=== PATIENT | male | born 1935 | race Caucasian/White ===

== ENCOUNTER 2023-05-17 13:06 | Observation (INO) ==
--- NOTE | 2023-05-17 13:15 | ED Triage Note ---
Date of Service May 17, 2023 History of Present Illness This patient was briefly evaluated while in triage. An abbreviated physical exam was performed. This patient is a 87-year-old Male who presents to the ED for evaluation of BLE edema, shortness of breath x 3-4 day ran out of "fluid pill" over the holiday weekend also increased nocturia Physical Exam GENERAL: NAD, mild conversational dyspnea CARDIOVASCULAR: RRR, MELVIN RESPIRATORY: breath sound diminished throughout, mildly tachypnea ABDOMEN: BS x 4. Nontender to palpation. Initial orders for labs and / or imaging were placed and patient was placed in the waiting area until a bed is available. Please see further documentation for the full ED course.
[2023-05-17 13:36] LABS: Basophils # (auto) 0.04 K/uL (0.00-0.20); Basophils % (auto) 0.7 %; Eosinophils # (auto) 0.29 K/uL (0.00-0.50); Eosinophils % (auto) 4.8 %; Hematocrit (blood only) 36.8 % (42.0-52.0); Hemoglobin 12.6 g/dl (14.0-18.0); Immature Granulocytes # (auto) 0.01 K/uL (0.01-0.20); Immature Granulocytes % (auto) 0.2 %; Lymphocytes # (auto) 2.37 K/uL (1.20-3.40); Lymphocytes % (auto) 39.2 %; Mean Corpuscular Hemoglobin 30.8 pg (25.0-34.0); Mean Corpuscular Hgb Conc 34.2 g/dL (32.0-36.0); Mean Platelet Volume 9.8 fL (9.4-12.4); Monocytes # (auto) 0.61 K/uL (0.11-0.59); Monocytes % (auto) 10.1 %; Neutrophils # (auto) 2.72 K/uL (1.40-6.50); Platelet Count 146 K/uL (130-400); RDW Standard Deviation 42.9 fL (36.4-46.3); Red Blood Count 4.09 M/uL (4.70-6.10); White Blood Count 6.04 K/ul (4.8-10.8)
[2023-05-17 13:43] LABS: Appearance Urine Clear (Clear); Bacteria Urine Automated Negative (Negative); Bilirubin Urine Negative (Negative); Blood Urine 1+ (Negative); Cast Urine Automated 0 /lpf (0-5); Color Urine Yellow; Epithelial Cell Urine Auto 0-5 /lpf (0-5); Glucose Urine UA Negative (Negative); Ketones Urine Negative (Negative); Leukocyte Esterase Urine Negative (Negative); Nitrite Urine Negative (Negative); Protein Urine Negative (Negative); RBC Urine Automated 0-4 /hpf (0-4); Specific Gravity Urine 1.008 (1.000-1.030); Urobilinogen Urine Negative (Negative); WBC Urine Automated 0 /hpf (0-5)
[2023-05-17 13:52] LABS: Alanine Aminotransferase 14 U/L (7-52); Albumin Globulin Ratio 1.5 (0.9-2); Albumin Level 3.8 gm/dl (3.4-5.0); Alkaline Phosphatase 37 U/L (34-104); Anion Gap 8 (3-11); Aspartate Aminotransferase 19 U/L (13-39); BUN Creatinine Ratio 12.2 (10-20); Bilirubin,Total 0.5 mg/dl (0.2-1.0); Blood Urea Nitrogen 28 mg/dl (6-23); Calcium 9.9 mg/dl (8.6-10.3); Carbon Dioxide 28 mmol/L (21-32); Chloride 104 mmol/L (98-107); Est GFR (African American) 28.5 ml/min; Est GFR (Non-African American) 24.6 ml/min; Globulin 2.5 gm/dl (2.5-4.0); Glucose 92 mg/dl (70-99(Fasting)); Potassium 4.1 mmol/L (3.5-5.1); Sodium 140 mmol/L (136-145); Total Protein 6.3 gm/dl (6.0-8.3)
[2023-05-17 13:58] LABS: Troponin I High Sensitivity 20.5 pg/ml (0-20)
--- NOTE | 2023-05-17 14:00 | XRay Report ---
XR chest 1V portable CLINICAL HISTORY: sob, fluid overload? TECHNIQUE: Single frontal radiograph of the chest was obtained. Comparison: None available at the time of this dictation. FINDINGS: No lines and tubes are seen. Calcified aortic knob is seen. The lungs are clear. No evidence of pleur al effusion or pneumothorax. IMPRESSION: No acute abnormalities and in particular no radiographic evidence of pneumonia. ACT 112: Negative or not required by law. Electronically signed by: Carlton Schmitt M.D. 05/17/2023 1:59 PM
--- NOTE | 2023-05-17 14:23 | Emergency Department Note ---
Impression & Plan Acute kidney injury superimposed on chronic kidney disease, Acute decompensated heart failure ED Provider Note NAME: LACIE CAMACHO AGE: 87 SEX: M : 1935 ARRIVES VIA: Walk-In INFORMANT: Patient, ED PROVIDER(S): Bal Babin MD CHIEF COMPLAINT: HPI: This is an 87-year-old male presented for bilateral lower extremity swelling. Patient states that he has had BLE for multiple weeks to months. He is on Bumex. He states that over the past 2 days he has noticed worsening bilateral lower edema despite taking his fluid pill. He notes he is now having difficulty with exertional dyspnea. He is noticing orthopnea where he must sit up in bed in order to sleep. He lives alone and his daughter is worried about him doing each activities due to his unsteadiness as well as dyspnea. Patient also was seen at urology at outside hospital in which he had burning with urination. He was diagnosed with cystitis on CT and started on ciprofloxacin for 1 month. ROS: See above HPI for pertinent positives & negatives. A total of 10 systems reviewed and were otherwise negative. PAST MEDICAL HISTORY: See Below PAST SURGICAL HISTORY: See Below FAMILY HISTORY: See Below SOCIAL HISTORY: See Below HOME MEDICATIONS: See Below ALLERGIES: See Below VITALS: See Below PHYSICAL EXAMINATION: General: resting comfortably in no acute distress Head: Normocephalic and atraumatic Eyes: Normal inspection, extraocular muscles intact Ear, nose, throat: Normal external exam Neck: Normal range of motion Respiratory: Left lower diminished Cardiovascular: Regular rate/rhythm, no murmur GI: soft, nontender, no guarding or rebound Extremities: nontender, moves all extremities, 3+ pitting edema Neuro: The patient awake and alert, appropriately conversive, no focal deficits, symmetric faces Skin: Warm, dry, and intact MEDICAL DECISION MAKING: This is a an 87-year-old male plan for bilateral lower extremity edema, dyspnea. Patient has subtle left lower lung sounds concerning for fluid. Otherwise patient is orthopneic, having dyspnea even conversing with me. He is about to finish a full sentence. External records reviewed from that has [place] showing CT abdomen/pelvis showing possible cystitis. Also reviewed note from patient's urology ALEXANDER who did the initial scan as well as ciprofloxacin for cystitis/prostatitis. Will get screening blood work here, BNP, chest x-ray. Chest Xray independently interpreted by me showing no pneumothorax, focal opacity, or pleural effusions. Patient's lab work is reviewed showing a subtle BMV elevation, creatinine 2.9, troponin elevation into the 20s. Due to patient's symptoms, kidney function, troponin elevation, will admit for further workup and treatment. Patient accepted to [facility] service. Triage Nursing notes reviewed. Prior medical records reviewed Vital Signs: reviewed and remarkable for no significant abnormalities Differential diagnosis: CHF, ACS, renal failure, fluid overload Records reviewed ER treatment provided: See below Diagnostics interpreted by me: ECG: ECG independently interpreted by me with normal sinus rhythm, rate of 85, normal axis, normal WI, normal QRS, normal QTc, no ST segment elevations consistent with STEMI criteria Cardiac Monitoring: An order was placed for continuous cardiac monitoring. The monitor shows a rate of 68 with sinus rhythm. Laboratory studies: As stated above and show below. Imaging studies: See below. Radiographic imaging was reviewed by myself Consultation(s): None Past Med/Surg History Medical History (Updated 05/17/23 @ 19:25 by Bal Babin MD) Aortic valve sclerosis Bradycardia HTN (hypertension) CAD (coronary artery disease) Dyslipidemia BPH (benign prostatic hyperplasia) CKD (chronic kidney disease), stage III Chronic diastolic heart failure Surgical History (Updated 05/17/23 @ 17:30 by Audra Bangura PA-C) H/O hernia repair Hx of tonsillectomy S/P cholecystectomy Family History (Updated 05/17/23 @ 17:30 by Audra Bangura PA-C) Other Heart disease Hypertension Social History Smoking Status: Unknown if ever smoked Feels Safe at Home: Yes Allergies Allergies Allergy/AdvReac Type Severity Reaction Status Date / Time acetaminophen Allergy Unknown RASH Verified 05/17/23 15:47 cimetidine Allergy Unknown RASH Verified 05/17/23 15:47 cyclobenzaprine Allergy Unknown RASH Verified 05/17/23 15:47 hydrocodone Allergy Unknown RASH Verified 05/17/23 15:47 oxycodone Allergy Unknown RASH Verified 05/17/23 15:47 lisinopril AdvReac Unknown CHEST PAIN Verified 05/17/23 15:47 Home Meds Home Medications Medication Instructions Recorded Confirmed Prostate-8 1 tab PO DIRECTED 05/17/23 05/17/23 aspirin 81 mg tablet,delayed 81 mg PO DAILY 05/17/23 05/17/23 release bumetanide 1 mg tablet 1 mg PO QAM 05/17/23 05/17/23 coenzyme Q10 100 mg capsule 200 mg PO DAILY 05/17/23 05/17/23 (CoQ-10) doxazosin 8 mg tablet 8 mg PO QPM 05/17/23 05/17/23 famotidine 20 mg tablet (Pepcid) 20 mg PO DAILY PRN Acid Reflux 05/17/23 05/17/23 hydrocortisone acetate 25 mg 25 mg WI BID PRN Hemorrhoids 05/17/23 05/17/23 rectal suppository (Anusol-HC) isosorbide mononitrate 30 mg 30 mg PO QAM 05/17/23 05/17/23 tablet,extended release 24 hr lactobacillus combination no.4 3 0 mmu cells PO DAILY 05/17/23 05/17/23 billion cell capsule (Probiotic) lecithin 1,200 mg capsule 1,200 mg PO DAILY 05/17/23 05/17/23 losartan 100 mg tablet 100 mg PO DAILY 05/17/23 05/17/23 magnesium carbonate 250 mg capsule 250 mg PO DAILY 05/17/23 05/17/23 metoprolol succinate 25 mg 25 mg PO QAM 05/17/23 05/17/23 tablet,extended release 24 hr gvhwccstlqzk-kbpufiwm-ivgyez tablet 1 tab PO DAILY 05/17/23 05/17/23 triamcinolone acetonide 0.1 % 1 applic topical BID PRN flare ups 05/17/23 05/17/23 topical cream Results & Data (ED) Vital Signs Vital Signs - 24 hr 05/17/23 13:10 05/17/23 14:09 05/17/23 14:09 Temperature 36.6 C Temperature Source Temporal Artery Scan Pulse Rate 97 H Pulse Rate [Apical] 65 Pulse Rate from SpO2 Sensor Respiratory Rate 20 17 Respiratory Effort / Characteristics Non-Labored Respiratory Depth Normal Blood Pressure 126/72 Blood Pressure [Left Arm] 153/73 H Blood Pressure Mean 90 Blood Pressure Mean [Left Arm] 99 Pulse Oximetry 97 98 Oxygen Delivery Method Room Air Room Air Room Air Sepsis Recent Fever Within 48 Hours No Sepsis New/Unexplained Change in Mental Status No Sepsis Action Taken by Nursing No Action Required 05/17/23 14:09 05/17/23 14:30 05/17/23 14:30 Temperature Temperature Source Pulse Rate 63 Pulse Rate [Apical] Pulse Rate from SpO2 Sensor 64 Respiratory Rate 19 Respiratory Effort / Characteristics Respiratory Depth Blood Pressure 141/78 H Blood Pressure [Left Arm] Blood Pressure Mean 110 Blood Pressure Mean [Left Arm] Pulse Oximetry 97 Oxygen Delivery Method Room Air Room Air Sepsis Recent Fever Within 48 Hours Sepsis New/Unexplained Change in Mental Status Sepsis Action Taken by Nursing 05/17/23 15:00 05/17/23 15:00 05/17/23 15:30 Temperature Temperature Source Pulse Rate 65 Pulse Rate [Apical] Pulse Rate from SpO2 Sensor 63 Respiratory Rate 24 Respiratory Effort / Characteristics Respiratory Depth Blood Pressure 139/84 140/82 Blood Pressure [Left Arm] Blood Pressure Mean 106 98 Blood Pressure Mean [Left Arm] Pulse Oximetry 97 Oxygen Delivery Method Room Air Sepsis Recent Fever Within 48 Hours Sepsis New/Unexplained Change in Mental Status Sepsis Action Taken by Nursing 05/17/23 15:30 05/17/23 15:34 05/17/23 16:01 Temperature Temperature Source Pulse Rate 65 63 73 Pulse Rate [Apical] Pulse Rate from SpO2 Sensor 65 75 Respiratory Rate 15 22 Respiratory Effort / Characteristics Respiratory Depth Blood Pressure Blood Pressure [Left Arm] Blood Pressure Mean Blood Pressure Mean [Left Arm] Pulse Oximetry 97 97 Oxygen Delivery Method Room Air Room Air Sepsis Recent Fever Within 48 Hours Sepsis New/Unexplained Change in Mental Status Sepsis Action Taken by Nursing 05/17/23 16:01 Temperature Temperature Source Pulse Rate Pulse Rate [Apical] Pulse Rate from SpO2 Sensor Respiratory Rate Respiratory Effort / Characteristics Respiratory Depth Blood Pressure 121/85 Blood Pressure [Left Arm] Blood Pressure Mean 95 Blood Pressure Mean [Left Arm] Pulse Oximetry Oxygen Delivery Method Sepsis Recent Fever Within 48 Hours Sepsis New/Unexplained Change in Mental Status Sepsis Action Taken by Nursing Laboratory Data 05/17/23 12:22 05/17/23 12:22 Lab Results 05/17/23 05/17/23 05/17/23 Range/Units 12:22 13:32 15:11 WBC 6.04 (4.8-10.8) K/ul RBC 4.09 L (4.70-6.10) M/uL Hgb 12.6 L (14.0-18.0) g/dl Hct 36.8 L (42.0-52.0) % MCV 90.0 (80.0-100.0) fL MCH 30.8 (25.0-34.0) pg MCHC 34.2 (32.0-36.0) g/dL RDW Std Deviation 42.9 (36.4-46.3) fL RDW Coeff of Reji 13.0 (11.5-14.5) % Plt Count 146 (130-400) K/uL MPV 9.8 (9.4-12.4) fL Immature Gran % (Auto) 0.2 % Neut % (Auto) 45.0 % Lymph % (Auto) 39.2 % [place] % (Auto) 10.1 % Eos % (Auto) 4.8 % Baso % (Auto) 0.7 % Neut # (Auto) 2.72 (1.40-6.50) K/uL Lymph # (Auto) 2.37 (1.20-3.40) K/uL [place] # (Auto) 0.61 H (0.11-0.59) K/uL Eos # (Auto) 0.29 (0.00-0.50) K/uL Baso # (Auto) 0.04 (0.00-0.20) K/uL Immature Gran # (Auto) 0.01 (0.01-0.20) K/uL Sodium 140 (136-145) mmol/L Potassium 4.1 (3.5-5.1) mmol/L Chloride 104 (98-107) mmol/L Carbon Dioxide 28 (21-32) mmol/L Anion Gap 8 (3-11) BUN 28 H (6-23) mg/dl Creatinine 2.29 H (0.6-1.4) mg/dl Est Cr Clr Drug Dosing Not Reportable Est GFR ( Amer) 28.5 ml/min Est GFR (Non-Af Amer) 24.6 ml/min BUN/Creatinine Ratio 12.2 (10-20) Glucose 92 (70-99(Fasting)) mg/dl Calcium 9.9 (8.6-10.3) mg/dl Total Bilirubin 0.5 (0.2-1.0) mg/dl AST 19 (13-39) U/L ALT 14 (7-52) U/L Alkaline Phosphatase 37 (34-104) U/L Troponin I High Sens 20.5 H 47.5 H D (0-20) pg/ml B-Natriuretic Peptide 157 H (0-100) pg/ml Total Protein 6.3 (6.0-8.3) gm/dl Albumin 3.8 (3.4-5.0) gm/dl Globulin 2.5 (2.5-4.0) gm/dl Albumin/Globulin Ratio 1.5 (0.9-2) Urine Color Yellow Urine Appearance Clear (Clear) Urine pH 5.0 (4.5-7.5) Ur Specific [place] 1.008 (1.000-1.030) Urine Protein Negative (Negative) Urine Glucose (UA) Negative (Negative) Urine Ketones Negative (Negative) Urine Blood 1+ H (Negative) Urine Nitrite Negative (Negative) Urine Bilirubin Negative (Negative) Urine Urobilinogen Negative (Negative) Ur Leukocyte Esterase Negative (Negative) Urine WBC (Auto) 0 (0-5) /hpf Urine RBC (Auto) 0-4 (0-4) /hpf U Hyaline Cast (Auto) 0 (0-5) /lpf U Epithel Cells (Auto) 0-5 (0-5) /lpf Urine Bacteria (Auto) Negative (Negative) Administered Medications Furosemide (Furosemide 40 Mg/4 Ml Vial) 40 mg IV DAILY YURI Stop: 06/16/23 17:14 Last Admin: 05/17/23 17:42 Dose: 40 mg Documented By: KIRSTEN Imaging Data Radiologist's Impression: Chest X-Ray 05/17/23 13:43 XR chest 1V portable CLINICAL HISTORY: sob, fluid overload? TECHNIQUE: Single frontal radiograph of the chest was obtained. Comparison: None available at the time of this dictation. FINDINGS: No lines and tubes are seen. Calcified aortic knob is seen. The lungs are clear. No evidence of pleural effusion or pneumothorax. IMPRESSION: No acute abnormalities and in particular no radiographic evidence of pneumonia. ACT 112: Negative or not required by law. Electronically signed by: Carlton Schmitt M.D. 05/17/2023 1:59 PM Discharge Plan Visit Data Chief Complaint: Shortness of Breath/Dyspnea Stated Complaint: SOB ED Provider: Bal Babin Discharge Problem: Acute kidney injury superimposed on chronic kidney disease, Acute decompensated heart failure Discharge Instructions Interventions: ED Discharge Assessment Last Done: 05/17/23 18:44
--- NOTE | 2023-05-17 15:58 | History & Physical Report ---
Date of Service May 17, 2023 Assessment & Plan (1) Acute decompensated heart failure: (2) Acute kidney injury superimposed on chronic kidney disease: (3) HTN (hypertension): (4) CAD (coronary artery disease): (5) Dyslipidemia: (6) BPH (benign prostatic hyperplasia): (7) Bradycardia: Plan This is an 87-year-old male with PMH of CAD, hypertension, venous insufficiency, CKD 3, chronic diastolic heart failure, CKD 3, BPH, lower extremity edema, anemia of chronic disease and other medical problems listed below who presents from home with worsening dyspnea on exertion and found to have decompensated HF. Acute decompensated HFpEF Weight gain, orthopnea worsening since Appears clinically volume overloaded, BNP 157, trop 20.5 -> 47.5 Given 40mg IV Lasix in ED, monitor diuresis overnight Previous 2D echo from Apr 2021 with preserved EF 60-64%, grade 1 diastolic dysfunction, aortic valve sclerosis, mild MR Low Na diet, daily weights, strict I&Os, continue trending troponin, repeat EKG in AM, routine cardiology consult MAGDALENA on CKD III Cr 2.29 (baseline ~2) Continue to monitor with diuresis Hold losartan in AM HTN Continue Toprol, holding AM dose of losartan given MAGDALENA as above CAD History of medically managed CAD with remote history of cardiac catheterization 1995 with an 80% RCA stenosis and a 40-60% LCx stenosis No chest pain, admission EKG with sinus rhythm with sinus arrhythmias, non- specific ST abnormality Continue aspirin, statin, Toprol BPH Cont. doxazosin Chronic dysuria awaiting outpatient urology appt. UA today without abnormality DVT Ppx: SQ heparin Code status: FULL PCP: [place] Dispo: Admitted to PCU, PT/OT eval ordered prior to dc as patient lives alone, ambulates with walker Patient seen in collaboration with Dr. Beebe. Please see addendum. History of Present Illness Chief Complaint: dyspnea on exertion Primary Care Provider: Olivia Griggs MD This is an 87-year-old male with PMH of CAD, hypertension, venous insufficiency, CKD 3, chronic diastolic heart failure, CKD 3, BPH, lower extremity edema, anemia of chronic disease and other medical problems listed below who presents from home with worsening dyspnea on exertion. Patient lives alone and ambulates with a walker. Patient is a poor historian and states that the reason he came in is for dysuria but upon further questions and discussion with family, patient was brought in for worsening dyspnea on exertion. History of chronic diastolic heart failure and is on 1 mg Bumex daily, which she states he has been taking. Patient endorses progressively worsening shortness of breath over the past week and is now short of breath even with speaking. Usually sleeps with head of bed raised but had to raise even higher last night to breathe more easily. Denies any recent viral illness or known sick contacts. No fever, chills or nasal congestion. Feels his legs are chronically swollen but seem to be even more so over the past few days since . Admits to eating a lot of salty foods over the holiday and generally eats prepackaged dinners from [employer]. Denies any PND, cough or chest pain. No N/V, abdominal pain, diarrhea or constipation. Chronic issue with dysuria but outpatient and current UA negative. Dr. Griggs has referral in for urology eval given blood in urine and ongoing dysuria. Follows with [facility] cardiology Dr. Pickard and PRIETO Sanchez, most recently seen in Jan 2023. Documented to have significant lower extremity edema secondary to dietary indiscretion in the past from mainly eating pre-packaged dinners. History of medically managed CAD with remote history of cardiac catheterization 1995 with an 80% RCA stenosis and a 40-60% LCx stenosis. Most recent 2D echo from Apr 2021 with preserved EF 60-64%, grade 1 diastolic dysfunction, aortic valve sclerosis, mild MR. History of CKD with baseline Cr 2.0, has not followed with nephrology in the past. Per chart review, patient up 4.4 lbs since previous weight in [facility]. Allergies Allergy/AdvReac Type Severity Reaction Status Date / Time acetaminophen Allergy Unknown RASH Verified 05/17/23 15:47 cimetidine Allergy Unknown RASH Verified 05/17/23 15:47 cyclobenzaprine Allergy Unknown RASH Verified 05/17/23 15:47 hydrocodone Allergy Unknown RASH Verified 05/17/23 15:47 oxycodone Allergy Unknown RASH Verified 05/17/23 15:47 lisinopril AdvReac Unknown CHEST PAIN Verified 05/17/23 15:47 Home Medications Medication Instructions Recorded Confirmed Type Prostate-8 1 tab PO DIRECTED 05/17/23 05/17/23 History aspirin 81 mg tablet,delayed 81 mg PO DAILY 05/17/23 05/17/23 History release bumetanide 1 mg tablet 1 mg PO QAM 05/17/23 05/17/23 History coenzyme Q10 100 mg capsule 200 mg PO DAILY 05/17/23 05/17/23 History (CoQ-10) doxazosin 8 mg tablet 8 mg PO QPM 05/17/23 05/17/23 History famotidine 20 mg tablet (Pepcid) 20 mg PO DAILY PRN Acid Reflux 05/17/23 05/17/23 History hydrocortisone acetate 25 mg 25 mg AL BID PRN Hemorrhoids 05/17/23 05/17/23 History rectal suppository (Anusol-HC) isosorbide mononitrate 30 mg 30 mg PO QAM 05/17/23 05/17/23 History tablet,extended release 24 hr lactobacillus combination no.4 3 0 mmu cells PO DAILY 05/17/23 05/17/23 History billion cell capsule (Probiotic) lecithin 1,200 mg capsule 1,200 mg PO DAILY 05/17/23 05/17/23 History losartan 100 mg tablet 100 mg PO DAILY 05/17/23 05/17/23 History magnesium carbonate 250 mg capsule 250 mg PO DAILY 05/17/23 05/17/23 History metoprolol succinate 25 mg 25 mg PO QAM 05/17/23 05/17/23 History tablet,extended release 24 hr bwejaowgvglf-prqcfgvp-nifphw tablet 1 tab PO DAILY 05/17/23 05/17/23 History triamcinolone acetonide 0.1 % 1 applic topical BID PRN flare ups 05/17/23 05/17/23 History topical cream Past Med/Surg History Medical History (Updated 05/17/23 @ 17:36 by Audra Bangura PA-C) Aortic valve sclerosis Bradycardia HTN (hypertension) CAD (coronary artery disease) Dyslipidemia BPH (benign prostatic hyperplasia) CKD (chronic kidney disease), stage III Chronic diastolic heart failure Surgical History (Updated 05/17/23 @ 17:30 by Audra Bangura PA-C) H/O hernia repair Hx of tonsillectomy S/P cholecystectomy Family History (Updated 05/17/23 @ 17:30 by Audra Bangura PA-C) Other Heart disease Hypertension Social History Smoking Status: Unknown if ever smoked Feels Safe at Home: Yes Review of Systems Review of Systems: At least ten systems reviewed and negative except as noted in the HPI. Physical Exam Physical Exam: General Appearance: WD/WN, vitals as above, NAD, sitting up in bed, pleasant, conversational dyspnea Head: normocephalic, atraumatic Eyes: normal inspection, PERRL, conjunctivae normal, anicteric sclerae ENT: external ear and nose normal, oropharynx normal Neck: normal visual inspection, trachea midline, no thyromegaly Respiratory: increased respiratory effort, diminished breath sounds to auscultation, no wheeze or rhonchi. + accessory muscle use Cardiovascular: bradycardic rate, regular rhythm, +MELVIN, normal peripheral pulses, 2-3+ BLE edema Chest: normal inspection of chest Abdomen/GI: normal bowel sounds, soft, nontender, no hepatosplenomegaly Extremities/Musculoskeletal: no cyanosis or clubbing, extremities motor strength 5/5 Neurologic: PERRL, EOMI, accommodation nl, no face palsy, no dysarthria, CN's II-XI intact bilaterally and moves all extremities Psychiatric: A+Ox3, euthymic affect Skin: no rashes, normal color, warm/dry Results & Data Results & Data Vital Signs (Past 12 Hours) Vital Signs Temp Pulse Pulse Resp BP BP Pulse Ox 05/17/23 15:34 63 05/17/23 14:30 141/78 H 05/17/23 14:30 63 19 97 05/17/23 14:09 05/17/23 14:09 65 17 153/73 H 98 05/17/23 14:09 05/17/23 13:10 36.6 C 97 H 20 126/72 97 O2 Del Method 05/17/23 15:34 05/17/23 14:30 05/17/23 14:30 Room Air 05/17/23 14:09 Room Air 05/17/23 14:09 Room Air 05/17/23 14:09 Room Air 05/17/23 13:10 Room Air Laboratory Results Short CBC 05/17/23 Range/Units 12:22 WBC 6.04 (4.8-10.8) K/ul Hgb 12.6 L (14.0-18.0) g/dl Hct 36.8 L (42.0-52.0) % Plt Count 146 (130-400) K/uL BMP 05/17/23 12:22 Sodium 140 Potassium 4.1 Chloride 104 Carbon Dioxide 28 BUN 28 H Creatinine 2.29 H Glucose 92 Calcium 9.9 Liver Function 05/17/23 Range/Units 12:22 Total Bilirubin 0.5 (0.2-1.0) mg/dl AST 19 (13-39) U/L ALT 14 (7-52) U/L Alkaline Phosphatase 37 (34-104) U/L Albumin 3.8 (3.4-5.0) gm/dl Urine 05/17/23 Range/Units 13:32 Urine Color Yellow Urine Appearance Clear (Clear) Urine pH 5.0 (4.5-7.5) Ur Specific [place] 1.008 (1.000-1.030) Urine Protein Negative (Negative) Urine Glucose (UA) Negative (Negative) Diagnostic Findings Chest X-Ray 05/17/23 13:43 XR chest 1V portable CLINICAL HISTORY: sob, fluid overload? TECHNIQUE: Single frontal radiograph of the chest was obtained. Comparison: None available at the time of this dictation. FINDINGS: No lines and tubes are seen. Calcified aortic knob is seen. The lungs are clear. No evidence of pleural effusion or pneumothorax. IMPRESSION: No acute abnormalities and in particular no radiographic evidence of pneumonia. ACT 112: Negative or not required by law. Electronically signed by: Carlton Schmitt M.D. 05/17/2023 1:59 PM Supervising Physician Co-Signing Physician Notes Pt seen and examined by myself, Zari Beebe MD on the day of service. Care was coordinated with Audra Bangura PA-C. 87yoM with PMhx significant for chronic diastolic heart failure, follows with [facility]. Pt tangential on exam, notes that he came in due to difficulty with urination, but reportedly has been having worsening FRANKLIN. On exam, noted significant lower extremity edema, breath sounds decreased bilaterally. BNP elevated at 156, chest xray unremarkable. Elevation to Cr of 2.29, baseline of 1.9 noted in [facility] from January [address]23. CT chest ordered, IV Lasix 40mg now, hold home bumex. Consider daily-BID administration of IV Lasix with close kidney function monitoring. Echo pending, last echo from 2020 in [facility] reviewed. Cardiology consult- appreciate recs. Otherwise as above.
[2023-05-17 17:02] LABS: Influenza A virus by PCR Negative (Neg); Influenza B virus by PCR Negative (Neg); RSV by PCR Negative (Neg); SARS CoV2 RNA(COVID-19) Ceph NEGATIVE (Negative)
[2023-05-17] MEDS: FUROSEMIDE 40 MG/4 ML VIAL IV SCH (17:42)
[2023-05-17] MEDS ORDERED: POLYETHYLENE (MIRALAX) 17 GM PACK PO PRN (19:18)
[2023-05-17] MEDS ORDERED: FAMOTIDINE 20 MG TAB PO PRN (19:18)
[2023-05-17] MEDS ORDERED: ONDANSETRON INJ 2 MG/ML 2 ML VIAL IV PRN (19:18)
[2023-05-17] MEDS ORDERED: hydrALAZINE HCL 20 MG/ML VIAL IV PRN (19:32)
[2023-05-17] MEDS: DOXAZosin MESYLATE 4 MG TAB PO SCH (20:24)
[2023-05-17] MEDS: HEPARIN SOD 5,000 UNIT/0.5 ML VIAL SQ SCH (21:01)
--- NOTE | 2023-05-17 21:14 | CT Scan Report ---
Exam(s): CT CHEST Without Contrast EXAM: CT Chest Without Intravenous Contrast CLINICAL HISTORY: Reason for exam: FRANKLIN. TECHNIQUE: Axial computed tomography images of the chest without intravenous contrast. CTDI is 11 mGy and DLP is 333.21 mGy-cm. Automated exposure control was utilized for the study. A dose lowering technique was utilized adhering to the principles of ALARA. COMPARISON: No relevant prior studies available. FINDINGS: Lungs: Unremarkable. No mass. No consolidation. Pleural space: Unremarkable. No pneumothorax. No significant effusion. Heart: Mild to moderate coronary vascular calcifications are seen. No cardiomegaly. No significant pericardial effusion. Bones/joints: Mild to moderate degenerative disc disease. No acute fracture. No dislocation. Soft tissues: Unremarkable. Vasculature: Ascending aorta is ectatic, measuring up to 3.8 cm in diameter. Lymph nodes: Unremarkable. No enlarged lymph nodes. IMPRESSION: No evidence of pulmonary edema or consolidation Electronically signed by: Daryn Gayle MD 05/17/23 21:13 PM
[2023-05-18 02:36] LABS: Hematocrit (blood only) 34.4 % (42.0-52.0); Hemoglobin 11.8 g/dl (14.0-18.0); Mean Corpuscular Hemoglobin 31.1 pg (25.0-34.0); Mean Corpuscular Hgb Conc 34.3 g/dL (32.0-36.0); Mean Corpuscular Volume 90.8 fL (80.0-100.0); Mean Platelet Volume 9.8 fL (9.4-12.4); Platelet Count 129 K/uL (130-400); RDW Standard Deviation 43.3 fL (36.4-46.3); Red Blood Count 3.79 M/uL (4.70-6.10); White Blood Count 5.87 K/ul (4.8-10.8)
[2023-05-18 02:51] LABS: Calcium 9.2 mg/dl (8.6-10.3); Creatinine Clr Calc Pharmacy 19.3 ml/min; Est GFR (African American) 26.1 ml/min; Est GFR (Non-African American) 22.5 ml/min; Magnesium 2.1 mg/dl (1.7-2.4); Potassium 4.1 mmol/L (3.5-5.1)
[2023-05-18] MEDS: HEPARIN SOD 5,000 UNIT/0.5 ML VIAL SQ SCH ×3 (05:35→21:28)
--- NOTE | 2023-05-18 08:44 | Cardiology Consultation ---
Date of Consultation May 18, 2023 Assessment & Plan (1) Acute on chronic diastolic CHF (congestive heart failure): (2) Acute kidney injury superimposed on chronic kidney disease: Plan IMPRESSION: 87 year old male with acute on chronic HFpEF likely secondary to dietary indiscretion with high sodium foods. HS troponin elevated. EKG without acute ST segment changes. Echo pending. BP Hypertensive. Losartan on hold due to renal disease. PLAN: HFpEF: Patient appears hypervolemic on exam. Continue IV Lasix 40 mg daily-- consider nephrology consult. Repeat BMP in the am. Monitor potassium for a goal of 4.0 and a mag goal of 2.0-- replete as needed. 2g sodium diet. Strict I&O. Daily standing weights. CHF Edu. Echo pending-- further recommendations to follow. CAD: Remote history of cardiac cath circa 1995, 80% RCA stenosis and 40 to 60% left circumflex stenosis. Patient with symptoms of atypical CP and FRANKLIN- HS tropinin elevated. EKG without acute ST segment changes. Given renal dysfunction will treat conservatively-- Increase Imdur to 60 mg daily. Will give an additional 30 mg this am Holding Losartan due to renal dysfunction Continue metoprolol succinate 25 mg daily Continue Pepcid for possible reflux symptoms. Continue ASA and Statin. Case discussed with Dr. Hughes. I spent a total of 40 minutes on the date of service in preparation, delivery, and documentation of the care provided to this patient, excluding any time spent in the performance of separately billed services. Supervising Physician Co-Signing Physician Notes Patient seen and examined at the bedside. Somewhat of a poor historian. Notes transient chest discomfort yesterday which he felt was attributed to GERD. Currently pain-free. Reports weight gain and worsening lower extremity edema over the holidays. Blood pressure initially elevated however improved after diuresis. Fluid balance negative approximately 1400 cc after 2 doses IV furosemide. PE: VSS. Gen: NAD, awake and alert. Heart: Regular rhythm, normal S1-S2. 1/6 systolic ejection murmur. Lungs: Clear bilateral, no rales, rhonchi, wheeze. Abdomen: Soft, nontender, no rebound or guarding. Extremities: 2+ bilateral pedal and pretibial edema. 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 Echocardiogram demonstrating preserved LV systolic function with elevated pulmonary pressures. Continue daily cautious IV diuresis with furosemide. Follow GFR, electrolytes, daily weight, and fluid balance. Resume losartan in a.m. pending review of labs. Agree with increasing Imdur to 60 mg daily. Continue low-dose aspirin and metoprolol as ordered. I spent a total of 30 minutes on the date of service in preparation, delivery, and documentation of the care provided to this patient, excluding any time spent in the performance of separately billed services. History of Present Illness Reason for Consultation: Acute on chronic diastolic CHF Requesting Physician: Yesenia dos santos Attending Physician: Michael Becerra MD History of Present Illness 87-year-old male presented to the [facility] emergency department due to weight gain, dyspnea with exertion and lower extremity edema that started shortly after the . Normally maintains on 1 mg of Bumex daily. Treated with 40 mg of IV Lasix in the emergency department and started on daily dosing. Patient has known chronic kidney disease with a baseline creatinine approximately 2, on admission creatinine was mildly increased over baseline at 2.29>>2.46 this am. Losartan was held. High-sensitivity troponin elevated (20.5>>47.5>>171.8>>188.6>>173.2). Echo pending. Upon entrance into the room patient resting in bed. No acute distress, but noting ongoing shortness of breath-- mildly improved since admission. Noted over the last week he has been having issues walking up his 14 steps in his home. Has to take it very slow and rests at the top. Occasional mild chest discomfort that is nonexertional-- described as a burning gas sensation that is relieved by belching. Takes Pepcid occasionally. + Orthopnea, no PND. +worsening lower extremity edema. No palpations, lightheadedness or dizziness. Admits to a high sodium diet-- eats prepackaged meals daily. Denies any missed doses of his medications. Tele: SR with PACs 50-70s BP: Hypertensive this admission (160-180s sbp) I&O: -1.7L Weight: 80.9 kg >>75.7 kg Primary outpatient bioassayist: Dr. Pickard, follows with Hayder Sanchez PA-C Past medical history: CAD with remote cardiac cath circa 1995, 80% RCA stenosis and 40 to 60% left circumflex stenosis Chronic diastolic CHF Chronic venous insufficiency Hypertension Dyslipidemia GERD BPH CKD stage III Allergies Allergy/AdvReac Type Severity Reaction Status Date / Time acetaminophen Allergy Unknown RASH Verified 05/17/23 15:47 cimetidine Allergy Unknown RASH Verified 05/17/23 15:47 cyclobenzaprine Allergy Unknown RASH Verified 05/17/23 15:47 hydrocodone Allergy Unknown RASH Verified 05/17/23 15:47 oxycodone Allergy Unknown RASH Verified 05/17/23 15:47 lisinopril AdvReac Unknown CHEST PAIN Verified 05/17/23 15:47 Home Medications Medication Instructions Recorded Confirmed Type Prostate-8 1 tab PO DIRECTED 05/17/23 05/17/23 History aspirin 81 mg tablet,delayed 81 mg PO DAILY 05/17/23 05/17/23 History release bumetanide 1 mg tablet 1 mg PO QAM 05/17/23 05/17/23 History coenzyme Q10 100 mg capsule 200 mg PO DAILY 05/17/23 05/17/23 History (CoQ-10) doxazosin 8 mg tablet 8 mg PO QPM 05/17/23 05/17/23 History famotidine 20 mg tablet (Pepcid) 20 mg PO DAILY PRN Acid Reflux 05/17/23 05/17/23 History hydrocortisone acetate 25 mg 25 mg [place] BID PRN Hemorrhoids 05/17/23 05/17/23 History rectal suppository (Anusol-HC) isosorbide mononitrate 30 mg 30 mg PO QAM 05/17/23 05/17/23 History tablet,extended release 24 hr lactobacillus combination no.4 3 0 mmu cells PO DAILY 05/17/23 05/17/23 History billion cell capsule (Probiotic) lecithin 1,200 mg capsule 1,200 mg PO DAILY 05/17/23 05/17/23 History losartan 100 mg tablet 100 mg PO DAILY 05/17/23 05/17/23 History magnesium carbonate 250 mg capsule 250 mg PO DAILY 05/17/23 05/17/23 History metoprolol succinate 25 mg 25 mg PO QAM 05/17/23 05/17/23 History tablet,extended release 24 hr vmibkxifcsqs-bxpawmuo-kjqwhq tablet 1 tab PO DAILY 05/17/23 05/17/23 History triamcinolone acetonide 0.1 % 1 applic topical BID PRN flare ups 05/17/23 05/17/23 History topical cream Patient History Medical History (Updated 05/18/23 @ 08:44 by HANK Canales) Aortic valve sclerosis Bradycardia HTN (hypertension) CAD (coronary artery disease) Dyslipidemia BPH (benign prostatic hyperplasia) CKD (chronic kidney disease), stage III Chronic diastolic heart failure Surgical History (Updated 05/17/23 @ 17:30 by Audra Bangura PA-C) H/O hernia repair Hx of tonsillectomy S/P cholecystectomy Family History (Updated 05/17/23 @ 17:30 by Audra Bangura PA-C) Other Heart disease Hypertension Social History Smoking Status: Former smoker Tobacco Type: Cigarettes Hx Alcohol Use: No Hx Substance Use: No Preferred Language: Lithuanian Home Office Claims Examiner Required: No Beliefs That Will Affect Care: None Current Living Situation: Alone Feels Safe at Home: Yes Assistive Devices: Cane, Denture - Upper and Denture - Lower Review of Systems Review of Systems: All systems reviewed & are unremarkable except as noted in HPI & below Physical Exam Constitutional: WD/WN, vitals as above no acute distress Neck: normal visual inspection and trachea midline Respiratory: + cough and + tachypneic; + not able to speak in complete sentence Auscultation: + diminished lung sounds, + rales and + rhonchi Cardiovascular: Rate/Rhythm: regular rate and regular rhythm Heart Sounds: normal S1, normal S2 and + murmur (+2/6 systolic murmur) Vessels: + JVD Extremities: + edema (+3 BLLE pitting edema to knees ) Gastrointestinal (Abdomen): normal bowel sounds, soft, nontender, no hepatosplenomegaly Skin: no rashes, warm and dry Psychiatric: Orientation: alert and oriented x 3 Results & Data Vital Signs (Past 12 Hours) Vital Signs Temp Pulse Pulse Resp BP Pulse Ox O2 Del Method 05/18/23 08:23 36.6 C 69 18 180/66 H 95 Room Air 05/18/23 03:09 36.5 C 73 16 164/83 H 96 Room Air 05/17/23 22:25 36.5 C 70 20 153/77 H 96 Room Air 05/17/23 22:07 54 L Laboratory Results Cardiac Enzymes 05/17/23 05/17/23 05/17/23 Range/Units 12:22 15:11 20:27 AST 19 (13-39) U/L Troponin I High Sens 20.5 H 47.5 H D 171.8 H* D (0-20) pg/ml B-Natriuretic Peptide 157 H (0-100) pg/ml 05/18/23 05/18/23 Range/Units 02:19 05:31 AST (13-39) U/L Troponin I High Sens 188.6 H* 173.2 H* (0-20) pg/ml B-Natriuretic Peptide (0-100) pg/ml Coagulation 05/17/23 Range/Units 12:22 B-Natriuretic Peptide 157 H (0-100) pg/ml CBC 05/17/23 05/18/23 Range/Units 12:22 02:19 WBC 6.04 5.87 (4.8-10.8) K/ul RBC 4.09 L 3.79 L (4.70-6.10) M/uL Hgb 12.6 L 11.8 L (14.0-18.0) g/dl Hct 36.8 L 34.4 L (42.0-52.0) % Plt Count 146 129 L (130-400) K/uL Neut # (Auto) 2.72 (1.40-6.50) K/uL Lymph # (Auto) 2.37 (1.20-3.40) K/uL [place] # (Auto) 0.61 H (0.11-0.59) K/uL Eos # (Auto) 0.29 (0.00-0.50) K/uL Baso # (Auto) 0.04 (0.00-0.20) K/uL Comprehensive Metabolic Panel 05/17/23 05/18/23 Range/Units 12:22 02:19 Sodium 140 141 (136-145) mmol/L Potassium 4.1 4.1 (3.5-5.1) mmol/L Chloride 104 105 (98-107) mmol/L Carbon Dioxide 28 31 (21-32) mmol/L BUN 28 H 32 H (6-23) mg/dl Creatinine 2.29 H 2.46 H (0.6-1.4) mg/dl Glucose 92 105 H (70-99(Fasting)) mg/dl Calcium 9.9 9.2 (8.6-10.3) mg/dl AST 19 (13-39) U/L ALT 14 (7-52) U/L Alkaline Phosphatase 37 (34-104) U/L Total Protein 6.3 (6.0-8.3) gm/dl Albumin 3.8 (3.4-5.0) gm/dl Intake and Output 05/17/23 05/18/23 05/18/23 22:59 06:59 14:59 Output Total 1425 / 1675 250 / 1675 Balance -1425 / -1675 -250 / -1675 Output: Urine 1425 / 1675 250 / 1675 Other: Weight 75.7 kg Weight Measurement Method Built in [facility] Diagnostic Findings Outpatient echocardiogram 05/14/2021 Interpretation Summary The examination is adequate to evaluate the referral indication. The qualitative LV ejection fraction is 60-64% (normal). The left ventricular diastolic function is mildly abnormal (grade I). The aortic valve is mildly calcified. There is aortic valve sclerosis without stenosis. Mild mitral regurgitation is present. Compared to last available study changes are noted as follows: Mild mitral regurgitation now present.
[2023-05-18] MEDS ORDERED: NON-FORMULARY MEDICATION (Lactobacillus Combination No.4 [Probiotic] 3 billion cell Capsul PO SCH (09:00)
[2023-05-18] MEDS ORDERED: ISOSORBIDE MONO EXTENDED REL 30 MG TABCR PO SCH (09:00)
[2023-05-18] MEDS ORDERED: MAGNESIUM CARBONATE PO SCH (09:00)
[2023-05-18] MEDS ORDERED: NON-FORMULARY MEDICATION (Coenzyme Q10 [Coq-10] 100 mg Capsule) PO SCH (09:00)
[2023-05-18] MEDS: FUROSEMIDE 40 MG/4 ML VIAL IV SCH (09:04)
[2023-05-18] MEDS: ASPIRIN 81 MG ECTAB PO SCH (09:06)
[2023-05-18] MEDS: CEROVITE ADV FORMULA TAB PO SCH (09:06)
[2023-05-18] MEDS: METOPROLOL SUCC 25MG EXT REL TAB PO SCH (09:07)
[2023-05-18] MEDS ORDERED: ISOSORBIDE MONO EXTENDED REL 30 MG TABCR PO ONE (09:32)
--- NOTE | 2023-05-18 12:14 | Hospitalist Progress Note ---
Date of Service May 18, 2023 Assessment & Plan (1) Acute decompensated heart failure: (2) Acute kidney injury superimposed on chronic kidney disease: (3) HTN (hypertension): (4) CAD (coronary artery disease): (5) Dyslipidemia: (6) BPH (benign prostatic hyperplasia): (7) Bradycardia: Plan This is an 87-year-old male with PMH of CAD, hypertension, venous insufficiency, CKD 3, chronic diastolic heart failure, CKD 3, BPH, lower extremity edema, anemia of chronic disease and other medical problems listed below who presents from home with worsening dyspnea on exertion and found to have decompensated HF. Acute decompensated HFpEF Demand ischemia Weight gain, orthopnea worsening since Appears clinically volume overloaded, BNP 157, High sensitive troponin up trended to 180 and down trended. EKG from admission personally reviewed; normal sinus rhythm with no ST or T wave changes Echocardiogram shows EF of 60 to 65% with mild concentric LVH. Continue on IV Lasix 40 mg daily. Strict input and output Daily weights Telemetry monitoring MAGDALENA on CKD III Creatinine of 2.4 today. Baseline around 2. Avoid nephrotoxic agent Continue to monitor. HTN Continue Toprol, Losartan on hold due to elevated creatinine. CAD History of medically managed CAD with remote history of cardiac catheterization 1995 with an 80% RCA stenosis and a 40-60% LCx stenosis No chest pain, admission EKG with sinus rhythm with sinus arrhythmias, non- specific ST abnormality Continue aspirin, statin, Toprol BPH Cont. doxazosin Chronic dysuria awaiting outpatient urology appt. UA today without abnormality DVT Ppx: SQ heparin Code status: FULL PCP: [place] Dispo: Admitted to PCU, PT/OT recommends rehab; case management on board. Time spent evaluating patient, direct bedside care, chart review, placing orders, interpretation of diagnostic studies, discussion with consultants, patient, and family members, as well as other required patient management activities is 50 minutes Please note the above document was generated using voice recognition software. It may contain grammatical, syntax or spelling errors. Any formal questions or concerns about the content, text or information contained within the body of this dictation should be directly addressed to the provider for clarification Admission and Anticipated Discharge Date Admission Date: May 17, 2023 Subjective Seen and examined at bedside. He is sitting up on the chair at the side of the bed; not in distress. Blood pressure elevated. Other vital stable. Review of Systems Review of Systems: All systems reviewed & are unremarkable except as noted in Subjective Physical Exam Physical Exam: Constitutional: WD/WN, vitals as above, NAD, sitting up in bed, pleasant, conversing easily Respiratory: normal respiratory effort, lungs clear to auscultation, no wheeze, rales, rhonchi. Normal insp/exp effort, no accessory muscle use Cardiovascular: RRR, no murmur, no edema Vessels: no JVD or carotid bruit Chest: normal inspection of chest Abdomen: normal bowel sounds, soft, nontender, no hepatosplenomegaly Musculoskeletal: no cyanosis or clubbing, extremities motor strength 5/5 Skin: no rashes, warm and dry normal turgor Neurologic: PERRL, EOMI, accommodation nl, no face palsy, no dysarthria CN's II- XI intact bilaterally and moves all extremities Psychiatric: A+Ox3, euthymic affect Results & Data Results & Data Vital Signs (Past 12 Hours) Vital Signs Temp Pulse Resp BP Pulse Ox Pulse Ox O2 Del Method 05/18/23 11:41 95 05/18/23 08: 36.6 C 69 18 180/66 H 95 Room Air 05/18/23 03:09 36.5 C 73 16 164/83 H 96 Room Air O2 Flow Rate 05/18/23 11:41 0 05/18/23 08:23 05/18/23 03:09 Laboratory Results Laboratory Results WBC 5.87 K/ul (4.8-10.8) 05/18/23 02:19 RBC 3.79 M/uL (4.70-6.10) L 05/18/23 02:19 Hgb 11.8 g/dl (14.0-18.0) L 05/18/23 02:19 Hct 34.4 % (42.0-52.0) L 05/18/23 02:19 MCV 90.8 fL (80.0-100.0) 05/18/23 02:19 MCH 31.1 pg (25.0-34.0) 05/18/23 02:19 MCHC 34.3 g/dL (32.0-36.0) 05/18/23 02:19 RDW Std Deviation 43.3 fL (36.4-46.3) 05/18/23 02:19 RDW Coeff of Reji 13.0 % (11.5-14.5) 05/18/23 02:19 Plt Count 129 K/uL (130-400) L 05/18/23 02:19 MPV 9.8 fL (9.4-12.4) 05/18/23 02:19 Immature Gran % (Auto) 0.2 % 05/17/23 12:22 Neut % (Auto) 45.0 % 05/17/23 12:22 Lymph % (Auto) 39.2 % 05/17/23 12:22 [place] % (Auto) 10.1 % 05/17/23 12:22 Eos % (Auto) 4.8 % 05/17/23 12:22 Baso % (Auto) 0.7 % 05/17/23 12:22 Neut # (Auto) 2.72 K/uL (1.40-6.50) 05/17/23 12:22 Lymph # (Auto) 2.37 K/uL (1.20-3.40) 05/17/23 12:22 [place] # (Auto) 0.61 K/uL (0.11-0.59) H 05/17/23 12:22 Eos # (Auto) 0.29 K/uL (0.00-0.50) 05/17/23 12:22 Baso # (Auto) 0.04 K/uL (0.00-0.20) 05/17/23 12:22 Immature Gran # (Auto) 0.01 K/uL (0.01-0.20) 05/17/23 12:22 Sodium 141 mmol/L (136-145) 05/18/23 02:19 Potassium 4.1 mmol/L (3.5-5.1) 05/18/23 02:19 Chloride 105 mmol/L (98-107) 05/18/23 02:19 Carbon Dioxide 31 mmol/L (21-32) 05/18/23 02:19 Anion Gap 5 (3-11) 05/18/23 02:19 BUN 32 mg/dl (6-23) H 05/18/23 02:19 Creatinine 2.46 mg/dl (0.6-1.4) H 05/18/23 02:19 Est Cr Clr Drug Dosing 19.3 ml/min 05/18/23 02:19 Est GFR ( Amer) 26.1 ml/min 05/18/23 02:19 Est GFR (Non-Af Amer) 22.5 ml/min 05/18/23 02:19 BUN/Creatinine Ratio 13.0 (10-20) 05/18/23 02:19 Glucose 105 mg/dl (70-99(Fasting)) H 05/18/23 02:19 Calcium 9.2 mg/dl (8.6-10.3) 05/18/23 02:19 Magnesium 2.1 mg/dl (1.7-2.4) 05/18/23 02:19 Total Bilirubin 0.5 mg/dl (0.2-1.0) 05/17/23 12:22 AST 19 U/L (13-39) 05/17/23 12:22 ALT 14 U/L (7-52) 05/17/23 12:22 Alkaline Phosphatase 37 U/L (34-104) 05/17/23 12:22 Troponin I High Sens 120.3 pg/ml (0-20) H* D 05/18/23 10:53 B-Natriuretic Peptide 157 pg/ml (0-100) H 05/17/23 12:22 Total Protein 6.3 gm/dl (6.0-8.3) 05/17/23 12:22 Albumin 3.8 gm/dl (3.4-5.0) 05/17/23 12:22 Globulin 2.5 gm/dl (2.5-4.0) 05/17/23 12:22 Albumin/Globulin Ratio 1.5 (0.9-2) 05/17/23 12:22 Urine Color Yellow 05/17/23 13:32 Urine Appearance Clear (Clear) 05/17/23 13:32 Urine pH 5.0 (4.5-7.5) 05/17/23 13:32 Ur Specific [place] 1.008 (1.000-1.030) 05/17/23 13:32 Urine Protein Negative (Negative) 05/17/23 13:32 Urine Glucose (UA) Negative (Negative) 05/17/23 13:32 Urine Ketones Negative (Negative) 05/17/23 13:32 Urine Blood 1+ (Negative) H 05/17/23 13:32 Urine Nitrite Negative (Negative) 05/17/23 13:32 Urine Bilirubin Negative (Negative) 05/17/23 13:32 Urine Urobilinogen Negative (Negative) 05/17/23 13:32 Ur Leukocyte Esterase Negative (Negative) 05/17/23 13:32 Urine WBC (Auto) 0 /hpf (0-5) 05/17/23 13:32 Urine RBC (Auto) 0-4 /hpf (0-4) 05/17/23 13:32 U Hyaline Cast (Auto) 0 /lpf (0-5) 05/17/23 13:32 U Epithel Cells (Auto) 0-5 /lpf (0-5) 05/17/23 13:32 Urine Bacteria (Auto) Negative (Negative) 05/17/23 13:32 SARS-CoV-2 (PCR) NEGATIVE (Negative) 05/17/23 16:13 Influenza Type A (PCR) Negative (Neg) 05/17/23 16:13 Influenza Type B (PCR) Negative (Neg) 05/17/23 16:13 RSV (RT-PCR) Negative (Neg) 05/17/23 16:13 Impressions Chest X-Ray 05/17/23 13:43 XR chest 1V portable CLINICAL HISTORY: sob, fluid overload? TECHNIQUE: Single frontal radiograph of the chest was obtained. Comparison: None available at the time of this dictation. FINDINGS: No lines and tubes are seen. Calcified aortic knob is seen. The lungs are clear. No evidence of pleural effusion or pneumothorax. IMPRESSION: No acute abnormalities and in particular no radiographic evidence of pneumonia. ACT 112: Negative or not required by law. Electronically signed by: Carlton Schmitt M.D. 05/17/2023 1:[address] 05/17/23 19:18 Exam(s): CT CHEST Without Contrast EXAM: CT Chest Without Intravenous Contrast CLINICAL HISTORY: Reason for exam: FRANKLIN. TECHNIQUE: Axial computed tomography images of the chest without intravenous contrast. CTDI is 11 mGy and DLP is 333.21 mGy-cm. Automated exposure control was utilized for the study. A dose lowering technique was utilized adhering to the principles of ALARA. COMPARISON: No relevant prior studies available. FINDINGS: Lungs: Unremarkable. No mass. No consolidation. Pleural space: Unremarkable. No pneumothorax. No significant effusion. Heart: Mild to moderate coronary vascular calcifications are seen. No cardiomegaly. No significant pericardial effusion. Bones/joints: Mild to moderate degenerative disc disease. No acute fracture. No dislocation. Soft tissues: Unremarkable. Vasculature: Ascending aorta is ectatic, measuring up to 3.8 cm in diameter. Lymph nodes: Unremarkable. No enlarged lymph nodes. IMPRESSION: No evidence of pulmonary edema or consolidation Electronically signed by: Daryn Gayle MD 05/17/23 21:13 PM
--- NOTE | 2023-05-18 17:40 | Electrocardiogram Report ---
Test Reason : Blood Pressure : / mmHG Vent. Rate : 085 BPM Atrial Rate : 085 BPM P-R Int : 184 ms QRS Dur : 082 ms QT Int : 348 ms P-R-T Axes : 068 -01 072 degrees QTc Int : 414 ms Normal sinus rhythm with sinus arrhythmia Possible Inferior infarct , age undetermined Possible Anterolateral infarct , age undetermined Abnormal ECG No previous ECGs available Confirmed by Jagjit Wynn ([id number]) on 05/18/2023 5:39:37 PM Referred By: REFERRED SELF Confirmed By:Giorgi Wynn
--- NOTE | 2023-05-18 19:34 | Electrocardiogram Report ---
Test Reason : Blood Pressure : / mmHG Vent. Rate : 066 BPM Atrial Rate : 066 BPM P-R Int : 192 ms QRS Dur : 096 ms QT Int : 426 ms P-R-T Axes : 078 025 065 degrees QTc Int : 446 ms Normal sinus rhythm Poor R wave progression, consider anterior [place] vs. lead placement vs. LVH Abnormal ECG When compared with ECG of 17-MAY-2023 13:21, (unconfirmed) No significant change was found Confirmed by Jagjit Wynn ([id number] on 05/18/2023 7:34:20 PM Referred By: REFERRED SELF Confirmed By:Giorgi Wynn
[2023-05-18] MEDS: DOXAZosin MESYLATE 4 MG TAB PO SCH (20:31)
[2023-05-19] MEDS: HEPARIN SOD 5,000 UNIT/0.5 ML VIAL SQ SCH (05:32)
[2023-05-19 06:16] LABS: Hematocrit (blood only) 34.1 % (42.0-52.0); Hemoglobin 11.8 g/dl (14.0-18.0); Mean Corpuscular Hemoglobin 30.6 pg (25.0-34.0); Mean Corpuscular Hgb Conc 34.6 g/dL (32.0-36.0); Mean Corpuscular Volume 88.6 fL (80.0-100.0); Platelet Count 136 K/uL (130-400); RDW Coefficient of Variation 12.9 % (11.5-14.5); RDW Standard Deviation 41.8 fL (36.4-46.3); Red Blood Count 3.85 M/uL (4.70-6.10)
[2023-05-19 06:39] LABS: Calcium 8.8 mg/dl (8.6-10.3); Creatinine Clr Calc Pharmacy 21.2 ml/min; Est GFR (African American) 29.6 ml/min; Est GFR (Non-African American) 25.5 ml/min; Potassium 3.9 mmol/L (3.5-5.1)
[2023-05-19] MEDS ORDERED: ISOSORBIDE MONO EXTENDED REL 60 MG TABCR PO SCH (09:00)
[2023-05-19] MEDS: FUROSEMIDE 40 MG/4 ML VIAL IV SCH (09:09)
[2023-05-19] MEDS: ASPIRIN 81 MG ECTAB PO SCH (09:09)
[2023-05-19] MEDS: METOPROLOL SUCC 25MG EXT REL TAB PO SCH (09:10)
[2023-05-19] MEDS: CEROVITE ADV FORMULA TAB PO SCH (09:10)
--- NOTE | 2023-05-19 11:48 | Cardiology Progress Note ---
Date of Service May 19, 2023 Assessment & Plan (1) Acute on chronic diastolic CHF (congestive heart failure): (2) Acute kidney injury superimposed on chronic kidney disease: (3) HTN (hypertension): Plan IMPRESSION: 87 year old male with acute on chronic HFpEF likely secondary to dietary indiscretion with high sodium foods. HS troponin elevated. EKG without acute ST segment changes. Echo with preserved LVEF, no wall motion abnormalities. BP Hypertensive. Losartan on hold due to renal disease. PLAN: HFpEF: Patient appears hypervolemic on exam. Improved respiratory symptoms with overnight diuresis. Received additional dose of IV Lasix 40 mg today Ongoing renal insufficiency noted. Losartan on hold. 2g sodium diet. Strict I&O. Daily standing weights. CAD: Remote history of cardiac cath circa 1995, 80% RCA stenosis and 40 to 60% left circumflex stenosis. Patient with symptoms of atypical CP and FRANKLIN- HS troponin elevated. EKG without acute ST segment changes. Given renal dysfunction will treat conservatively. No recurrent anginal symptoms. Continue higher dose isosorbide at 60 mg. Holding Losartan due to renal dysfunction Continue metoprolol succinate 25 mg daily Continue ASA and Statin. If patient ambulating in hallways this afternoon without chest pain/dyspnea, likely stable for discharge today. Resume oral bumex on discharge. Monitor renal function and consider nephrology evaluation as outpatient. Case discussed with Dr. Hughes. I spent a total of 35 minutes on the date of service in preparation, delivery, and documentation of the care provided to this patient, excluding any time spent in the performance of separately billed services. Admission and Anticipated Discharge Date Admission Date: May 17, 2023 Supervising Physician Co-Signing Physician Notes Patient seen and examined at the bedside. Somewhat of a poor historian. Shortness of breath improved with diuresis. Requesting discharge. No recurrent chest discomfort. Negative fluid balance noted. Patient reports bilateral edema is chronic. PE: VSS. Gen: NAD, awake and alert. Heart: Regular rhythm, normal S1-S2. 1/6 systolic ejection murmur. Lungs: Clear bilateral, no rales, rhonchi, wheeze. Abdomen: Soft, nontender, no rebound or guarding. Extremities: 2+ bilateral pedal and pretibial edema. A/P: Agree with above PA-C history, physical exam, assessment and plan. Patient improved with IV diuretic therapy. If ambulating in the halls without chest di scomfort or significant dyspnea. He may be discharged to home this afternoon. Transition back to oral torsemide. Imdur titrated to 60 mg daily during hospitalization. Hold ARB due to renal dysfunction. Outpatient cardiology follow-up within 2 weeks. Subjective Patient resting in chair. Feeling well this morning. Prior complaints of chest pain/tightness and dyspnea resolved. Slept well. No reported orthopnea. Diuresed approx 3.2 L since admission. Weight trending down. Patient reports chronic LE edema, and feels this is back at baseline. He is hoping to be discharged today. He had one episode of possible atrial tachycardia lasting 10 minutes around 1:00 AM. Per nursing staff, he was out of bed on commode trying to have BM. Heart rates improved when he returned to bed. Review of Systems Review of Systems: All systems reviewed & are unremarkable except as noted in HPI & below Physical Exam Constitutional: WD/WN, vitals as above no acute distress Neck: normal visual inspection and trachea midline Respiratory: normal respiratory effort; no labored breathing Auscultation: + diminished lung sounds Cardiovascular: Rate/Rhythm: regular rate and regular rhythm Heart Sounds: normal S1, normal S2 and + murmur (+2/6 systolic murmur) Vessels: + JVD Extremities: + edema (+2 BLLE pitting edema to knees ) Gastrointestinal (Abdomen): normal bowel sounds, soft, nontender, no hepatosplenomegaly Skin: no rashes, warm and dry Psychiatric: Orientation: alert and oriented x 3 Results & Data Vital Signs (Past 12 Hours) Vital Signs Temp Pulse Pulse Resp BP Pulse Ox O2 Del Method 05/19/23 10:29 62 05/19/23 10:29 Room Air 05/19/23 06:55 36.8 C 60 18 166/72 H 95 Room Air 05/19/23 02:29 37 C 79 18 169/86 H 96 Room Air 05/18/23 23:47 63 Laboratory Results Cardiac Enzymes 05/18/23 Range/Units 19:02 Troponin I High Sens 89.3 H* D (0-20) pg/ml CBC 05/19/23 Range/Units 05:31 WBC 5.20 (4.8-10.8) K/ul RBC 3.85 L (4.70-6.10) M/uL Hgb 11.8 L (14.0-18.0) g/dl Hct 34.1 L (42.0-52.0) % Plt Count 136 (130-400) K/uL Comprehensive Metabolic Panel 05/19/23 Range/Units 05:31 Sodium 141 (136-145) mmol/L Potassium 3.9 (3.5-5.1) mmol/L Chloride 104 (98-107) mmol/L Carbon Dioxide 32 (21-32) mmol/L BUN 31 H (6-23) mg/dl Creatinine 2.22 H (0.6-1.4) mg/dl Glucose 92 (70-99(Fasting)) mg/dl Calcium 8.8 (8.6-10.3) mg/dl Intake and Output 05/18/23 05/19/23 05/19/23 22:59 06:59 14:59 Intake Total 1125 / 2645 150 / 2645 Output Total 350 / 1600 Balance 775 / 1045 150 / 1045 Intake: Oral 1125 / 2645 150 / 2645 Output: Urine 350 / 1600 Other: Weight 74.1 kg Diagnostic Findings Telemetry reviewed: NSR in the 70's. When he ambulates, he gets tachycardic in the 140's. One episode of possible atrial tach in around 1:00 AM lasting 10 minutes. Per nursing Heart rates improved when he returned to bed. Echo report reviewed from yesterday: LVEF at 60-65% normal wall motion Aortic sclerosis without stenosis. Mild MR Mild TR Mildly elevated pulm pressures at 47 mmHg Medications Administered Current Inpatient Medications Aspirin (Aspirin 81 Mg Ectab) 81 mg PO DAILY YURI Stop: 06/17/23 08:59 Last Admin: 05/19/23 09:09 Dose: 81 mg Doxazosin Mesylate (Doxazosin Mesylate 4 Mg Tab) 8 mg PO QPM YURI Stop: 06/16/23 20:59 Last Admin: 05/18/23 20:31 Dose: 8 mg Famotidine (Famotidine 20 Mg Tab) 20 mg PO DAILY PRN PRN Reason: Acid Reflux Stop: 06/16/23 19:17 Furosemide (Furosemide 40 Mg/4 Ml Vial) 40 mg IV DAILY YURI Stop: 06/16/23 17:14 Last Admin: 05/19/23 09:09 Dose: 40 mg Heparin Sodium (Porcine) (Heparin Sod 5,000 Unit/0.5 Ml Vial) 5,000 units SQ Q8 YURI Stop: 06/16/23 21:59 Last Admin: 05/19/23 05:32 Dose: 5,000 units Hydralazine HCl (Hydralazine Hcl 20 Mg/Ml Vial) 10 mg IV Q8H PRN PRN Reason: Hypertension Stop: 06/16/23 19:44 Isosorbide Mononitrate (Isosorbide [place] Extended Rel 60 Mg Tabcr) 60 mg PO QAM YURI Stop: 06/18/23 08:59 Last Admin: 05/19/23 09:10 Dose: 60 mg Metoprolol Succinate (Metoprolol Succ 25mg Ext Rel Tab) 25 mg PO QAM YURI Stop: 06/17/23 08:59 Last Admin: 05/19/23 09:10 Dose: 25 mg Multivitamins/Minerals (Cerovite Adv Formula Tab) 1 tab PO DAILY YURI Stop: 06/17/23 08:59 Last Admin: 05/19/23 09:10 Dose: 1 tab Ondansetron HCl (Ondansetron Inj 2 Mg/Ml 2 Ml Vial) 4 mg IV Q6H PRN PRN Reason: Nausea Stop: 06/16/23 19:17 Polyethylene Glycol (Polyethylene (Miralax) 17 Gm Pack) 17 gm PO DAILY PRN PRN Reason: Constipation Stop: 06/16/23 19:17 (3) HTN (hypertension) Hypertension type: primary hypertension Qualified Code(s): I10 - Essential (primary) hypertension
--- NOTE | 2023-05-19 13:17 | Discharge Summary ---
Date of Service May 19, 2023 Admission HPI Per Admitting Provider This is an 87-year-old male with PMH of CAD, hypertension, venous insufficiency, CKD 3, chronic diastolic heart failure, CKD 3, BPH, lower extremity edema, anemia of chronic disease and other medical problems listed below who presents from home with worsening dyspnea on exertion. Patient lives alone and ambulates with a walker. Patient is a poor historian and states that the reason he came in is for dysuria but upon further questions and discussion with family, patient was brought in for worsening dyspnea on exertion. History of chronic diastolic heart failure and is on 1 mg Bumex daily, which she states he has been taking. Patient endorses progressively worsening shortness of breath over the past week and is now short of breath even with speaking. Usually sleeps with head of bed raised but had to raise even higher last night to breathe more easily. Denies any recent viral illness or known sick contacts. No fever, chills or nasal congestion. Feels his legs are chronically swollen but seem to be even more so over the past few days since [place]. Admits to eating a lot of salty foods over the holiday and generally eats prepackaged dinners from [employer]. Denies any PND, cough or chest pain. No N/V, abdominal pain, diarrhea or constipation. Chronic issue with dysuria but outpatient and current UA negative. Dr. Griggs has referral in for urology eval given blood in urine and ongoing dysuria. [place] [facility] [place] Pickard and PRIETO Sanchez, most recently seen in Jan 2023. Documented to have significant lower extremity edema secondary to dietary indiscretion in the past from mainly eating pre-packaged dinners. History of medically managed CAD with remote history of cardiac catheterization 1995 with an 80% RCA stenosis and a 40-60% LCx stenosis. Most recent 2D echo fr om Apr 2021 with preserved EF 60-64%, grade 1 diastolic dysfunction, aortic valve sclerosis, mild MR. History of CKD with baseline Cr 2.0, has not followed with nephrology in the past. Per chart review, patient up 4.4 lbs since previous weight in [facility]. Admission Exam Per Admitting Provider General Appearance: WD/WN, vitals as above, NAD, sitting up in bed, pleasant, conversational dyspnea Head: normocephalic, atraumatic Eyes: normal inspection, PERRL, conjunctivae normal, anicteric sclerae ENT: external ear and nose normal, oropharynx normal Neck: normal visual inspection, trachea midline, no thyromegaly Respiratory: increased respiratory effort, diminished breath sounds to auscultation, no wheeze or rhonchi. + accessory muscle use Cardiovascular: bradycardic rate, regular rhythm, +MELVIN, normal peripheral pulses, 2-3+ BLE edema Chest: normal inspection of chest Abdomen/GI: normal bowel sounds, soft, nontender, no hepatosplenomegaly Extremities/Musculoskeletal: no cyanosis or clubbing, extremities motor strength 5/5 Neurologic: PERRL, EOMI, accommodation nl, no face palsy, no dysarthria, CN's II-XI intact bilaterally and moves all extremities Psychiatric: A+Ox3, euthymic affect Skin: no rashes, normal color, warm/dry Principal Diagnosis Acute decompensated HFpEF Demand ischemia MAGDALENA on CKD III Discharge Exam Constitutional: WD/WN, vitals as above, NAD, sitting up in bed, pleasant, conversing easily Respiratory: normal respiratory effort, lungs clear to auscultation, no wheeze, rales, rhonchi. Normal insp/exp effort, no accessory muscle use Cardiovascular: RRR, no murmur, no edema Vessels: no JVD or carotid bruit Chest: normal inspection of chest Abdomen: normal bowel sounds, soft, nontender, no hepatosplenomegaly Musculoskeletal: no cyanosis or clubbing, extremities motor strength 5/5 Skin: no rashes, warm and dry normal turgor Neurologic: PERRL, EOMI, accommodation nl, no face palsy, no dysarthria CN's II- XI intact bilaterally and moves all extremities Psychiatric: A+Ox3, euthymic affect Discharge Data Allergies Allergy/AdvReac Type Severity Reaction Status Date / Time acetaminophen Allergy Unknown RASH Verified 05/17/23 15:47 cimetidine Allergy Unknown RASH Verified 05/17/23 15:47 cyclobenzaprine Allergy Unknown RASH Verified 05/17/23 15:47 hydrocodone Allergy Unknown RASH Verified 05/17/23 15:47 oxycodone Allergy Unknown RASH Verified 05/17/23 15:47 lisinopril AdvReac Unknown CHEST PAIN Verified 05/17/23 15:47 Consultations 05/17/23 15:57 ED Decision to Admit Stat 05/18/23 07:00 Consult Cardiology Routine Ordered Studies 05/17/23 19:18 CT chest without contrast [CT chest diagnostic wo con] Urgent Hospital Course (1) Acute decompensated heart failure: (2) Acute kidney injury superimposed on chronic kidney disease: (3) HTN (hypertension): (4) CAD (coronary artery disease): (5) Dyslipidemia: (6) BPH (benign prostatic hyperplasia): (7) Bradycardia: Plan This is an 87-year-old male with PMH of CAD, hypertension, venous insufficiency, CKD 3, chronic diastolic heart failure, CKD 3, BPH, lower extremity edema, anemia of chronic disease and other medical problems listed below who presents from home with worsening dyspnea on exertion and found to have decompensated HF. Acute decompensated HFpEF Demand ischemia Weight gain, orthopnea worsening since Appears clinically volume overloaded, BNP 157, High sensitive troponin up trended to 180 and down trended. EKG from admission personally reviewed; normal sinus rhythm with no ST or T wave changes Echocardiogram shows EF of 60 to 65% with mild concentric LVH. During the hospitalization, patient was diuresed with IV Lasix. Cardiology was consulted for comanagement. Patient reported improvement in the symptoms. Patient discharged on home dose of Bumex. Imdur increased to 60 mg at discharge. MAGDALENA on CKD III Creatinine of 2.4 today. Baseline around 2. Creatinine is stable at baseline. Losartan on hold at discharge. Please note the above document was generated using voice recognition software. It may contain grammatical, syntax or spelling errors. Any formal questions or concerns about the content, text or information contained within the body of this dictation should be directly addressed to the provider for clarification Total Time Total Time Spent Total Time Spent (In Minutes): 45 Total Time Includes: Examination of the Patient, Discharge Planning, Medication Reconciliation, Communication With Other Providers and Other Discharge Plan Discharge Items Patient Disposition: Home - Home Health Services Reason For Visit: DYSPNEA ON EXERTION, VOLUME OVERLOAD, MAGDALENA ON CKD Discharge Diagnosis: MAGDALENA on CKD Acute on chronic diastolic heart failure Activity: Resume your previous activity Non-emergency contact: Primary Care Provider Call non-emergency contact if: you have any medication questions and your symptoms worsen Follow-up/Referrals: Olivia Griggs MD [Primary Care Provider] - Diet: Regular Addtl Attending Provider Instructions: You were admitted to the hospital due to heart failure exacerbation. Cardiology saw you in the hospital. They recommend to increase Imdur to 60 mg once a day. A new prescription of the Imdur is sent to her pharmacy. Please stop taking the Imdur 30 mg. The losartan is kept on hold for now. An appointment will be made with her primary care doctor for sometime next week. You can resume the medication after you have renal function test done after the discharge. Pending Studies at Discharge: No Stand-Alone Forms: [facility], Smoking Cessation Medications and DC Order Prescriptions: New isosorbide mononitrate 60 mg Tablet Extended Release 24 Hr 60 mg PO QAM Qty: 30 0RF Continued lecithin 1,200 mg Capsule 1,200 mg PO DAILY Rx Instructions: give with meal/snack aspirin [Aspir-81] 81 mg Tablet,Delayed Release (Dr/Ec) 81 mg PO DAILY triamcinolone acetonide 0.1 % cream 1 applic TOPICAL BID PRN (Reason: flare ups) hydrocortisone acetate [Anusol-HC] 25 mg Suppository 25 mg [place] BID PRN (Reason: Hemorrhoids) doxazosin 8 mg tablet 8 mg PO QPM famotidine [Pepcid] 20 mg Tablet 20 mg PO DAILY PRN (Reason: Acid Reflux) magnesium carbonate 250 mg Capsule 250 mg PO DAILY metoprolol succinate 25 mg tablet extended release 24 hr 25 mg PO QAM Centrum Silver Tablet 1 tab PO DAILY coenzyme Q10 [CoQ-10] 100 mg Capsule 200 mg PO DAILY Probiotic 3 billion cell Capsule 0 mmu cells PO DAILY Rx Instructions: administer with a meal Prostate-8 1 tab PO DIRECTED bumetanide 1 mg tablet 1 mg PO QAM Qty: 30 0RF Held losartan 100 mg tablet 100 mg PO DAILY Hold Instructions: Resume on 05/26/23. Please see your primary care doctor. Discontinued isosorbide mononitrate 30 mg tablet extended release 24 hr 30 mg PO QAM Discharge Orders: Discharge Order (Routine); Ordered 05/19/23 Ordered By: Michael Becerra Admission Data Admit Date/Time: 05/17/23 16:05 Attending Provider: Michael Becerra Admit Provider: Zari Beebe Primary Care Provider: Olivia Griggs Other Providers: Renato Hughes,Zari D.; Magdy,[facility]
== END 2023-05-19 14:15 | disposition home health service (06) | DRG 291 ==
LOC: ED 13:06 → 2E 16:05 → INTOOBSV 16:05 → SUATTDRO 16:05 → 2E 18:44